=== PATIENT | female | born 1950 | race Caucasian/White ===

== ENCOUNTER → 2016-10-25 | Outpatient (CLI) | payer OTHER ==
[~2016-10-25] MED LIST: ASPEC81 PO; CHOL100010 PO; CYAN100020 PO; GLC500 PO; HMLI SC; LIVALO PO; LVMIPEN SQ; TELM1TAB11 PO
[2016-10-25 12:48] LABS: BLOOD UREA NITROGEN 17 mg/dl (7-18); CARBON DIOXIDE 28 mmol/L (21-32); CHLORIDE 102 mmol/L (98-107); CREATININE 0.76 mg/dl (0.60-1.20); GLUCOSE 92 mg/dl (70-99); POTASSIUM 4.5 mmol/L (3.5-5.1); SODIUM 139 mmol/L (136-145)
[2016-10-25 12:59] LABS: CHOLESTEROL 189 mg/dl (0-200); CHOLESTEROL/HDL RATIO 4.6; HDL CHOLESTEROL 41 mg/dl; THYROID STIMULATING HORMONE 0.833 uIu/ml (0.300-4.500); TRIGLYCERIDES 233 mg/dl (0-150); VERY LOW DENSITY LIPOPROT CALC 47 mg/dl
== END | disposition home or self-care (01) ==
LOC: C.LAB 11:12
PROVIDERS: ATTEND Internal Medicine Geriatric Medicine
DX: E11.65 Type 2 diabetes mellitus with hyperglycemia (principal); E78.00 Pure hypercholesterolemia, unspecified; I10 Essential (primary) hypertension; E87.1 Hypo-osmolality and hyponatremia; E03.9 Hypothyroidism, unspecified

== ENCOUNTER → 2017-01-23 | Outpatient (CLI) | payer OTHER ==
[2017-01-23 10:07] LABS: BASO % 0.6 %; BASO ABS # 0.04 K/uL (0-0.2); COMPLETE YES; EOS % 1.9 %; HEMATOCRIT 39.1 % (37-47); IG% 0.3 %; LYMPH % 35.6 %; MEAN CELL VOLUME 88.1 fL (80-100); MEAN CORPUSCULAR HEMOGLOBIN 29.5 pg (25-34); MEAN CORPUSCULAR HGB CONC 33.5 g/dl (32-36); MEAN PLATELET VOLUME 11.1 fL (7.4-10.4); MONO % 7.5 %; NEUT % 54.1 %; PLATELET COUNT 325 K/uL (130-400); RED BLOOD COUNT 4.44 M/uL (4.2-5.4); WHITE BLOOD COUNT 7.02 K/uL (4.8-10.8)
[2017-01-23 10:37] LABS: CALCIUM 9.8 mg/dl (8.5-10.1)
[2017-01-23 10:41] LABS: ALT/SGPT 47 U/L (12-78); BLOOD UREA NITROGEN 17 mg/dl (7-18); BUN/CREATININE RATIO 19.2 (10-20); CARBON DIOXIDE 26 mmol/L (21-32); CHLORIDE 101 mmol/L (98-107); CREATININE 0.89 mg/dl (0.60-1.20); GLUCOSE 217 mg/dl (70-99); POTASSIUM 4.3 mmol/L (3.5-5.1); SODIUM 137 mmol/L (136-145)
[2017-01-23 10:44] LABS: ALB/GLOB RATIO 1.1 (0.9-2); ALKALINE PHOSPHATASE 93 U/L (45-117); AST/SGOT 27 U/L (15-37)
[2017-01-23 10:47] LABS: THYROID STIMULATING HORMONE 1.36 uIu/ml (0.300-4.500)
[2017-01-23 11:00] LABS: ESTIMATED AVERAGE GLUCOSE 180 mg/dl; HA1C FLAG Normal (Normal)
== END | disposition home or self-care (01) ==
LOC: C.LAB 09:08
PROVIDERS: ATTEND Internal Medicine Hematology & Oncology
DX: C50.919 Malignant neoplasm of unspecified site of unspecified female breast (principal); E78.00 Pure hypercholesterolemia, unspecified; I10 Essential (primary) hypertension; E03.9 Hypothyroidism, unspecified; E11.65 Type 2 diabetes mellitus with hyperglycemia; Z11.59 Encounter for screening for other viral diseases; Z79.4 Long term (current) use of insulin

== ENCOUNTER → 2017-01-25 | Outpatient (CLI) | payer OTHER ==
--- NOTE | 2017-01-25 09:25 | DIAGNOSTIC IMAGING REPORT ---
CAROTID ARTERY ULTRASOUND CLINICAL HISTORY: Cardiac murmur. COMPARISON STUDY: Carotid ultrasound June 24, 2012. TECHNIQUE: Real-time, grayscale, and color Doppler sonography of the carotid and vertebral arteries was performed. Images were viewed in the transverse and longitudinal planes. FINDINGS: There is moderate atherosclerotic plaque. Velocity measurements are listed below. COMMON CAROTID PEAK SYSTOLIC VELOCITY (CM/S): RIGHT 127 LEFT 108 ICA PEAK SYSTOLIC VELOCITY (CM/S): RIGHT 120 LEFT 121 The systolic ratios between the internal to common carotid arteries are normal. Antegrade flow is seen in the vertebral arteries. The external carotid arteries are patent. Elevated peak systolic velocity of 227 cm/s within the left external carotid artery is noted. Blood pressures were not obtained in this patient. A few benign-appearing left-sided cervical lymph nodes are incidentally noted. IMPRESSION: 1. Moderate plaque without evidence of a hemodynamically significant stenosis within the common carotid and internal carotid arteries. 2. Findings suggestive of a stenosis of the proximal left external carotid artery. Electronically signed by: Kirt Henriquez M.D. 01/25/2017 9:24 AM Dictated Date/Time: 01/25/2017 9:21 AM
== END | disposition home or self-care (01) ==
LOC: C.ULTRBC 08:42
PROVIDERS: ATTEND Physician Assistant Medical
DX: R01.1 Cardiac murmur, unspecified (principal); R09.89 Other specified symptoms and signs involving the circulatory and respiratory systems; R93.8 Abnormal findings on diagnostic imaging of other specified body structures

== ENCOUNTER → 2017-12-10 | Outpatient (CLI) | payer OTHER ==
[2017-12-10 09:59] LABS: HEMOGLOBIN A1C 8.1 % (4.5-5.6)
== END | disposition home or self-care (01) ==
LOC: C.LAB 08:06
PROVIDERS: ATTEND Internal Medicine Geriatric Medicine
DX: E11.65 Type 2 diabetes mellitus with hyperglycemia (principal); Z79.4 Long term (current) use of insulin

== ENCOUNTER → 2018-02-04 | Outpatient (CLI) | payer OTHER ==
--- NOTE | 2018-02-04 14:35 | MAMMOGRAPHY REPORT ---
BILATERAL DIGITAL DIAGNOSTIC MAMMOGRAM TOMOSYNTHESIS WITH CAD: 02/04/2018 CLINICAL HISTORY: Personal history of breast cancer. Asymptomatic. TECHNIQUE: Bilateral CC and MLO 2D and tomosynthesis images, spot magnification right CC and ML views were obtained. Current study was also evaluated with a Computer Aided Detection (CAD) system. COMPARISON: Comparison is made to exams dated: 02/01/2017 mammogram, 01/24/2016 mammogram, 01/29/2015 ult rasound, 01/29/2015 mammogram, 01/19/2015 mammogram, and 01/15/2014 mammogram - [facility]. BREAST COMPOSITION: There are scattered areas of fibroglandular density in both breasts. FINDINGS: There is expected architectural distortion, surgical clips, benign coarse calcification and linear sutural calcification in the upper outer posterior left breast, at the site of prior lumpecto my. Linear scar markers overlie the left upper outer breast and also the left axilla from prior lymp h node sampling. No new suspicious masses, asymmetries, calcifications or areas of unexpected [place]an[place] ectural distortion are identified in the left breast. There are possible clustered microcalcifications in the upper outer anterior right breast for which a dditional spot magnification views were obtained. On the spot magnification views there are a cluste r of faint amorphous microcalcifications measuring 6 x 7 mm, and a smaller grouping of amorphous micr ocalcifications noted medial to the slightly larger cluster in the CC projection. When comparing connie k to prior available mammograms, these calcifications are increased in conspicuity and although they could represent benign fibrocystic change, definitive characterization with a stereotactic guided bio psy is recommended. No other suspicious masses, calcifications, areas of architectural distortion or asymmetries are iden tified in the right breast. IMPRESSION: ACR BI-RADS CATEGORY 4: SUSPICIOUS 1. Right breast stereotactic guided biopsy is recommended for a 6 x 7 mm cluster of amorphous microc alcifications in the upper outer anterior breast. 2. Stable mammographic appearance of the left breast, without evidence of malignancy. Advise follow -up in 1 year. These results and recommendations were discussed with the patient at the time of the exam. She tenta tively scheduled the right breast stereotactic biopsy prior to leaving our department. Approximately 10% of breast cancers are not detected with mammography. A negative mammographic report should not delay biopsy if a clinically suggestive mass is present. Jessie Valencia M.D. ay/:02/04/2018 12:27:51 Plisse Machine Operator: Christine MAZARIEGOS)(M), [facility] letter sent: Abnormal 4/5 BI-RADS Code: ACR BI-RADS Category 4: Suspicious
== END | disposition home or self-care (01) ==
LOC: C.MAMM 09:33
PROVIDERS: ATTEND Physician Assistant Medical
DX: Z00.00 Encounter for general adult medical examination without abnormal findings (principal); E55.9 Vitamin D deficiency, unspecified; Z85.3 Personal history of malignant neoplasm of breast; Z12.31 Encounter for screening mammogram for malignant neoplasm of breast; R92.0 Mammographic microcalcification found on diagnostic imaging of breast

== ENCOUNTER → 2018-02-11 | Outpatient (CLI) | payer OTHER ==
--- NOTE | 2018-02-11 13:21 | Discharge Instructions ---
Discharge Instructions Procedure Procedure Date: February 11, 2018. Reason for visit: Right Calcs, Hx Left Breast Ca. Discharge Discharge Date: February 11, 2018. Discharge Diagnosis: post right breast stereotactic guided biopsy Medications Restart Stopped Medication(s): May restart Aspirin tomorrow. Instructions Activity Recommendations: Additional Limitations (see below) Return to School/Work: no limitations Recommended Home Diet: No Limitations Provider Instructions: ACTIVITY RECOMMENDATIONS: * No lifting, pushing, pulling or exercising the affected side for three days. RETURN TO SCHOOL/WORK: * You may return to work/school after the procedure, but do not perform any strenuous activities for 24 to 48 hours. MEDICATIONS: * Tylenol (two 325 mg) every four to six hours if needed for mild pain (if not allergic to Tylenol). DIET: * Resume previous diet. SPECIAL CARE INSTRUCTIONS: * Keep biopsy site dry for 24 hours. May shower after 24 hours, but do not soak (bathe) incision. * May remove Tegaderm (plastic patch) tomorrow AFTER showering. * Leave the steri-strips on for one week. Allow the steri-strips to fall off by themselves. If not off after one week, you may remove them. You may place a Bandaid crosswise over the strips, if desired. * Apply ice 10 minutes on and 10 minutes off as needed. * Wear a bra at bedtime to sleep more comfortably for 2-3 days. * Your referring physician should have the results after approximately 5 to 7 business days. * Call for unusual bleeding, fever, drainage, etc or if you have any questions call [phone] during normal business hours or after hours call Dr Valencia, . FOLLOW UP VISIT: Follow-up with Referring Physician as scheduled. Allergies Coded Allergies: Ezetimibe (Verified Allergy, Mild, Muscle Cramps, 11/30/15) Pravastatin (Verified Allergy, Mild, Muscle Cramps, 11/30/15) Rosuvastatin (Verified Allergy, Mild, Muscle Cramps, 11/30/15) Simvastatin (Verified Allergy, Mild, muscle cramps, 11/30/15) BEE STING (Verified Allergy, Unknown, HORNETS, UNKNOWN, 11/30/15) Cefaclor (Verified Allergy, Unknown, SWELLING OF HANDS AND FEET, 11/30/15) NUTS (Verified Allergy, Unknown, ITCHINESS, SWELLING OF LIPS AND THROAT, ) Penicillins (Verified Allergy, Unknown, UNKOWN, 11/30/15) Wheat (Verified Allergy, Unknown, ., 11/30/15) [place] Recommendations: Call your doctor if: * Temperature above 101 degrees * Pain not relieved by pain medicine ordered * There is increased drainage or redness from any incision * You have any unanswered questions or concerns. Your Doctors Instructions noted above were prepared by provider Jessie Valencia. Patient Signature Section: Patient Instructions Signature Page Rhina Rojas Patient (or Guardian) Signature/Date: I have read and understand the instructions given to me by my caregivers. Caregiver/RN/Doctor Signature/Date: The above-named patient and/or guardian has received patient instructions on this date. + Original Patient Signature Page (only) stays with chart. Please make copy for patient.
--- NOTE | 2018-02-11 15:23 | MAMMOGRAPHY REPORT ---
STEREOTACTIC GUIDED BIOPSY RIGHT BREAST: 02/11/2018 CLINICAL HISTORY: 6 x 7 mm cluster of amorphous microcalcifications in the upper outer quadrant of th e right breast. Patient presents for stereotactic guided biopsy. COMPARISON: Comparison is made to exams dated: 02/04/2018 mammogram, 02/01/2017 mammogram, 01/24/2016 clau mogram, 01/19/2015 mammogram, 01/15/2014 mammogram, and 01/01/2013 mammogram - [facility]. PATIENT CONSENT: After explaining the risks, benefits and alternatives of the procedure to the patien t, informed consent was obtained both verbally and in writing. Specific risks include: Bleeding, inf ection, puncture of adjacent structure, pain, nontarget biopsy, sampling error, metal allergy and med ication reaction. PROCEDURE DESCRIPTION: A time-out was performed and the right breast was confirmed as the site of bio psy. The patient was placed prone on the stereotactic biopsy table and the breast was placed in later al-medial compression. A tomosynthesis chief administrative officer view was obtained which demonstrated the clustered amorp hous microcalcifications in question, which are amenable to stereotactic tomosynthesis guided biopsy. The calcifications were targeted utilizing the coordinates obtained by the computer. The skin was prepped with Betadine. 1% Lidocaine with and without epinipherine was administered as local anesthesi a. A small skin incision was made. Through the incision, the needle was inserted to the depth determ ined by the computer. 10 samples were obtained using a [employer] 9-gauge vacuum-assisted biopsy dev ice. The specimen radiograph demonstrated numerous advertising account representative microcalcifications, therefore, a m etallic marker was placed at the biopsy site. There was no immediate complication. Hemostasis was ach ieved after several minutes of manual compression. Nearly all of the core samples contained calcific ations and were therefore all sent to pathology in one appropriately labeled container. Postprocedure CC and ML tomosynthesis views of the right breast were obtained. There is a new dumbb ell-shaped biopsy marker clip, small air pocket at the biopsy cavity and 7 mm hematoma at the biopsy site. IMPRESSION: STEREOTACTIC GUIDED BIOPSY Status post stereotactic tomosynthesis guided biopsy of clustered amorphous microcalcifications in th e right upper outer quadrant, with biopsy marker clip placed at the site. The patient will receive notification of the biopsy results from her referring physician. Jessie Valencia M.D. ay/:02/11/2018 13:48:24 Attending Technologist: Maite MAZARIEGOS)(Heather), [facility] Typing Element Machine Operator: Christine Jones, [facility]
--- NOTE | 2018-02-11 15:26 | MAMMOGRAPHY REPORT ---
UNILATERAL RIGHT DIGITAL DIAGNOSTIC MAMMOGRAM TOMOSYNTHESIS: 02/11/2018 CLINICAL HISTORY: Status post right breast stereotactic tomosynthesis guided biopsy of clustered micr ocalcifications in the upper outer quadrant anteriorly. History of remote left breast cancer status post breast conservation treatment. Please refer to the report from right breast stereotactic tomosynthesis guided biopsy performed at e same time for full detail. IMPRESSION: POST PROCEDURE IMAGING FOR MARKER PLACEMENT Please refer to the report from right breast stereotactic tomosynthesis guided biopsy performed at e same time for full detail. Approximately 10% of breast cancers are not detected with mammography. A negative mammographic report should not delay biopsy if a clinically suggestive mass is present. Jessie Valencia M.D. ay/:02/11/2018 13:22:12 Business Risk Consultant: Christine Jones, [facility] BI-RADS Code: Post Procedure Imaging For Marker Placement
== END | disposition home or self-care (01) ==
LOC: C.MAMM 12:36
PROVIDERS: ATTEND Internal Medicine Geriatric Medicine
DX: R92.0 Mammographic microcalcification found on diagnostic imaging of breast (principal)

== ENCOUNTER → 2018-04-29 | Outpatient (CLI) | payer OTHER ==
[2018-04-29 10:08] LABS: BLOOD UREA NITROGEN 12 mg/dl (7-18); CALCIUM 9.4 mg/dl (8.5-10.1); CARBON DIOXIDE 28 mmol/L (21-32); CREATININE 0.75 mg/dl (0.60-1.20); GLUCOSE 137 mg/dl (70-99); POTASSIUM 4.6 mmol/L (3.5-5.1); SODIUM 138 mmol/L (136-145)
[2018-04-29 10:29] LABS: HEMOGLOBIN A1C 7.9 % (4.5-5.6)
== END | disposition home or self-care (01) ==
LOC: C.LAB 06:56
PROVIDERS: ATTEND Internal Medicine Geriatric Medicine
DX: I10 Essential (primary) hypertension (principal); E53.8 Deficiency of other specified B group vitamins; E87.1 Hypo-osmolality and hyponatremia; E11.65 Type 2 diabetes mellitus with hyperglycemia; Z79.4 Long term (current) use of insulin